=== PATIENT | male | born 2005 | race Caucasian/White ===

== ENCOUNTER 2024-05-19 22:17 | Emergency (ER) | payer SELFPAY ==
[2024-05-19 22:19] VITALS: BP 145/79; PULSE 104; RESP 20; TEMP 37.1; O2SAT 100; BMI 27.3
--- NOTE | 2024-05-19 22:32 | ED_ITS ---
Discharge Plan Disposition Patient Disposition: Home, Self-Care Condition: Good Prescriptions Prescriptions: New cephalexin 500 mg capsule 500 mg PO Q6H 5 Days Qty: 20 0RF Referrals Follow up/Referrals: Provider,Referral, [Primary Care Provider] - See instructions Activity Restrictions/Add. Instructions Additional Instructions/Restrictions: Please take the antibiotics as directed. Please return with any new or worsening symptoms. Clinical Impressions Clinical Impression: Cellulitis Instructions Patient Instructions: Cellulitis Print Language Print Language: Jamaican Discharge ED Provider: Burt Luna Adult HPI General Chief complaint: PAIN Stated complaint: Bump between buttocks fever Time Seen by Provider: 05/19/24 22:32 History of Present Illness HPI narrative: Patient presents for evaluation of lesion on his buttock area that was gradual in onset stable in course constant no previous therapies no preceding nidus of lesion. It is mildly tender to palpation. He has not had similar symptoms before. Please note that above description of symptoms, in this electronic medical record under categorization of recalled from ER triage doctor by RN are reflective of an initial nursing assessment, however, is not reflective of my full history and physical exam that was personally taken and clarified. Conse quentially, this preceding description of symptoms, which may include the patient's categorized chief complaint in the EMR, do not reflect my personal clinical impression, and the ultimate description of history of present illness and patient stated complaints should be deferred to this section of the note. Unless stated otherwise or congruent with this section of the note, additional signs, symptoms, or incongruence should be interpreted as inaccurate with my clinical impression. Related Data Previous Rx's ?Medication ?Instructions ?Recorded cephalexin 500 mg capsule 500 mg PO Q6H 5 days #20 caps 05/19/24 Allergies Allergy/AdvReac Type Severity Reaction Status Date / Time No Known Allergies Allergy Verified 05/19/24 22:58 [facility] Disclaimer: The information contained in this section may have been updated after the patient was seen, as this information can be updated by other users. Social History Smoking Status: Never smoker alcohol intake: former current occupational status: other Travel in the last 8 weeks: None ROS Obtained: Yes other As per HPI Physical Exam General General appearance: alert and in no apparent distress Head Head exam: atraumatic and normocephalic Eye Eye exam: Present normal appearance Neck Neck exam: Present normal inspection Chest Chest inspection: Present normal inspection and symmetric chest wall rise Respiratory Respiratory exam: Present normal lung sounds bilaterally; Absent respiratory distress Cardiovascular Cardiovascular exam: Present regular rate and normal rhythm Abdominal Exam Abdominal exam: Present soft Neurological Exam Neurological exam: Present alert and oriented X3 Psychiatric Psychiatric exam: Present normal affect and normal mood Skin Skin exam: Present warm and dry Other Other exam information: Area of erythema and mild tenderness to palpation over the right buttock. No palpable fluctuance Medical Decision Making Medical Records Medical records reviewed: Yes I reviewed the patient's medical records. Screening: Per USPSTF and CDC recommendations, given the prevalence of disease in our region, it is our hospital?s policy to screen for HIV and viral Hepatitis for all patients aged 18 and over and those with ongoing risk factors. Harsha Inquiry Pt receiving controlled substance: No Vital Signs: 05/19/24 22:19 05/19/24 23:04 Temperature 98.8 F 98.7 F Temperature Source Oral Oral Pulse Rate 90 Pulse Rate [Right Brachial] 104 H Respiratory Rate 20 20 Blood Pressure 134/80 Blood Pressure [Right Arm] 145/79 H Blood Pressure Mean [Right Arm] 101 Blood Pressure Source Automatic Cuff Blood Pressure Source [Right Arm] Automatic Cuff Blood Pressure Position Sitting Blood Pressure Position [Right Arm] Sitting 02 Sat by Pulse Oximetry 100 Oxygen Delivery Method Room Air Room Air Orders (Tests/Meds): ED MEDICATIONS Discontinued Medications Generic Name Dose Route Start Last Admin Trade Name Freq PRN Reason Stop Dose Admin Cephalexin HCl 250 mg 05/19/24 22:59 05/19/24 23:02 Cephalexin 250mg Cap PO 05/19/24 23:00 250 mg ONCE ONE Administration Medical Decision Narrative: Patient with history and exam per above presenting for evaluation of skin lesion Diagnoses considered include cellulitis, no evidence of abscess or necrotizing soft tissue infection. No further workup is indicated at this time My clinical impression at this time is most consistent with cellulitis I discussed my clinical impression with patient and answered all questions. At this time, the evidence for any other entities in the differential is insufficient to warrant any further testing or ED observation. This was explained to the patient. The patient was advised that persistent or worsening symptoms require further evaluation. Critical Care Critical Care Time Critical Care Time: No
[2024-05-19] MEDS: CEPHALEXIN 250 MG PO (23:02)
[2024-05-19 23:04] VITALS: BP 134/80; PULSE 90; RESP 20; TEMP 37.1; O2SAT 100
== END 2024-05-19 23:08 | disposition home or self-care (01) ==
PROVIDERS: Emergency Provider Emergency Medicine
DX: L03.90 Cellulitis, unspecified (principal); R50.9 Fever, unspecified; L98.9 Disorder of the skin and subcutaneous tissue, unspecified
CPT/HCPCS: 99283